=== PATIENT | female | born 1995 | race Caucasian/White ===

== ENCOUNTER 2020-03-16 22:49 | Emergency (ER) | payer OTHER, SELFPAY ==
[~2020-03-16] VITALS: Ht 170.2 cm; Wt 67.2 kg
[2020-03-16] MEDS ORDERED: ZOLO50TA PO (23:17)
[2020-03-17] MEDS ORDERED: NS 1,000 ML IV ONE (00:15)
[2020-03-17 01:47] VITALS: BP 98/58
== END 2020-03-17 01:50 | disposition home or self-care (01) ==
LOC: M ED 22:49
DX: F10.20 Alcohol dependence, uncomplicated (principal); E86.0 Dehydration; F41.9 Anxiety disorder, unspecified; Z79.899 Other long term (current) drug therapy